=== PATIENT | female | born 1930 | race Caucasian/White ===

== ENCOUNTER 2019-02-22 19:24 | Emergency (ER) | payer MEDICARE ==
[~2019-02-22] VITALS: Ht 167.6 cm; Wt 59.0 kg
[~2019-02-22 19:24] MED LIST: ACET-6763 PO; AMIO200T PO; DOCU100C5 PO; GLU1I IM; LOV30I SUBQ; METF850T PO; METO25TA PO; SIMV40TA1 PO; TROS20TA5 PO
--- NOTE | 2019-02-22 19:24 | NUR ---
[birth year]21- PT BIBA FULL ARREST. TAKEN TO BED 10. DR. BROWER, RT, AND HOUSE SUP AT BEDSIDE.
--- NOTE | 2019-02-22 19:24 | NUR ---
PATIENT ARRIVED BY EMS ALREADY INTUBATED WITH A 7.0 CM ET TUBE SECURED AT 24CM AT THE LIP. BEGAN BAGGING PATIENT AT 100% FIO2. RT, LORI QIU AT BEDSIDE ASSISTED BY SUCTIONING ET TUBE OF BLOODY, FROTHY, EDEMIC SECRETIONS. CODE CALLED BY AT 1930.
--- NOTE | 2019-02-22 19:30 | NUR ---
1922- PATIENT ARRIVED VIA AMBULANCE ET TUBE IN PLACE BEING BAGGED, EMT PREFORMING CPR. LEFT LOWER LEG IO IN PLACE RUNNING RN BOLUS. HOOKED UP TO MONITOR, PEA ON MONITOR. RT AT BEDSIDE. AMP EPI GIVEN. CPR CONTINUED. AMP OF BI-CARB GIVEN. PEA ON MONITOR, NO PALPABLE PULSE. CPR RESUMED 1929-TIME OF CALLED BY DR. BROWER.
--- NOTE | 2019-02-22 19:30 | NUR ---
PT PRONOUNCED AT [address] Loy BROWER
--- NOTE | 2019-02-22 19:37 | NUR ---
[facility] CONTACTED. SPOKE WITH LEANNE, GAVE INFORMATION. STATED THAT [facility] WOULD NOT BE MOVING FORWARD.
--- NOTE | 2019-02-22 19:44 | NUR ---
[facility] CONTACTED. GAVE INFORMATION, STATED THEY WOULD CONTACT US SHORTLY.
--- NOTE | 2019-02-22 20:17 | NUR ---
PT BODY MOVED TO ROOM 125A
--- NOTE | 2019-02-22 22:44 | NUR ---
SPOKE WITH EMMIE AT [facility]ONERS OFFICE. STATED THAT SHE NEEDED FULL [employer] [facility] REPORT BEFORE THEY CAN CLEAR THE BODY.
--- NOTE | 2019-02-22 23:50 | NUR ---
SPOKE WITH [facility] TO [facility]. STATED THEY WOULD DISBATCH TRANSPORT.
--- NOTE | 2019-02-23 02:04 | NUR ---
PATIENT PICKED UP BY [facility]. FORMS SIGNED.
== END 2019-02-22 19:30 | disposition expired ==
LOC: MED 19:24
DX: I46.9 Cardiac arrest, cause unspecified (principal); E11.9 Type 2 diabetes mellitus without complications; F03.90 Unspecified dementia, unspecified severity, without behavioral disturbance, psychotic disturbance, mood disturbance, and anxiety; I10 Essential (primary) hypertension; Z79.84 Long term (current) use of oral hypoglycemic drugs; Z79.891 Long term (current) use of opiate analgesic; Z79.899 Other long term (current) drug therapy
CPT/HCPCS: 31500; 92950; 99285